=== PATIENT | male | born 1955 | race Caucasian/White ===

== ENCOUNTER → 2023-04-13 07:29 | Outpatient (REF) | payer MEDICARE, SELFPAY ==
[2023-04-13 09:06] LABS: HDL Cholesterol 51 mg/dl; LDL Cholesterol, Calculated 148 mg/dl; Total Cholesterol 211 mg/dl (50-199); Triglyceride 61 mg/dl (10-149); Very Low Density Lipoprotein 12 mg/dl (0-30)
[2023-04-13 09:33] LABS: PSA, Total - Screen 0.55 ng/ml (0.0-4.0)
[2023-04-13 11:10] LABS: Glycohemoglobin (HgbA1c) 5.6 % (4.0-5.6)
[2023-04-15 17:26] LABS: ALT (SGPT) 24 U/L (0-50); AST (SGOT) 22 U/L (17-59); Albumin 4.1 g/dl (3.5-5.0); Alkaline Phosphatase 52 U/L (38-126); Blood Urea Nitrogen 23 mg/dl (9-20); Calcium 9.8 mg/dl (8.4-10.2); Carbon Dioxide 26 mmol/L (22-30); Chloride 101 mmol/L (98-107); Glucose 102 mg/dl (70-99); Potassium 4.4 mmol/L (3.5-5.1); Sodium 136 mmol/L (135-145); Total Bilirubin 1.2 mg/dl (0.2-1.3); Total Protein 7.6 g/dl (6.3-8.2); eGFR > 60.00
== END ==
LOC: REG 07:29
PROVIDERS: ATTENDING PHYSICIAN Physician Assistant Medical
DX: R73.01 Impaired fasting glucose (principal); E78.2 Mixed hyperlipidemia; Z78.9 Other specified health status; Z12.5 Encounter for screening for malignant neoplasm of prostate
CPT/HCPCS: 36415; 80053; 80061; 83036; G0103

== ENCOUNTER → 2023-04-18 07:14 | Outpatient (REF) | payer MEDICARE, SELFPAY ==
[2023-04-20 13:01] LABS: Quantiferon Mitogen minus NIL 4.77 IU/mL; Quantiferon NIL 0.02 IU/mL; Quantiferon TB Gold Plus Negative (Negative)
== END ==
LOC: REG 07:14
PROVIDERS: ATTENDING PHYSICIAN Internal Medicine Rheumatology; FAMILY PHYSICIAN Family Medicine
DX: L40.50 Arthropathic psoriasis, unspecified (principal)
CPT/HCPCS: 36415; 86480

== ENCOUNTER → 2023-04-22 07:22 | Outpatient (REF) | payer MEDICARE, SELFPAY | LOC: RAD 07:22 | PROVIDERS: ATTENDING PHYSICIAN Physician Assistant Medical | DX: Z13.6 Encounter for screening for cardiovascular disorders (principal); I10 Essential (primary) hypertension | CPT/HCPCS: 76770 ==

== ENCOUNTER → 2024-03-13 07:17 | Outpatient (REF) | payer MEDICARE, SELFPAY | LOC: RAD 07:17 | PROVIDERS: ATTENDING PHYSICIAN Internal Medicine Critical Care Medicine; FAMILY PHYSICIAN Physician Assistant Medical | DX: Z87.891 Personal history of nicotine dependence (principal) | CPT/HCPCS: 71271 ==

== ENCOUNTER → 2024-04-11 07:04 | Outpatient (REF) | payer MEDICARE, SELFPAY ==
[2024-04-11 08:59] LABS: Glycohemoglobin (HgbA1c) 5.7 % (4.0-5.6)
[2024-04-11 09:06] LABS: ALT (SGPT) 22 U/L (0-50); AST (SGOT) 20 U/L (17-59); Albumin 4.7 g/dl (3.5-5.0); Alkaline Phosphatase 77 U/L (38-126); Blood Urea Nitrogen 20 mg/dl (9-20); Calcium 9.4 mg/dl (8.4-10.2); Carbon Dioxide 32 mmol/L (22-30); Chloride 98 mmol/L (98-107); Glucose 92 mg/dl (70-99); HDL Cholesterol 47 mg/dl; LDL Cholesterol, Calculated 137 mg/dl; Sodium 141 mmol/L (135-145); Total Bilirubin 1.5 mg/dl (0.2-1.3); Total Cholesterol 213 mg/dl (50-199); Total Protein 7.9 g/dl (6.3-8.2); Triglyceride 147 mg/dl (10-149); Very Low Density Lipoprotein 29 mg/dl (0-30); eGFR > 60.00
== END ==
LOC: REG 07:04
PROVIDERS: ATTENDING PHYSICIAN Physician Assistant Medical
DX: Z12.5 Encounter for screening for malignant neoplasm of prostate (principal); I10 Essential (primary) hypertension; R73.01 Impaired fasting glucose; E78.2 Mixed hyperlipidemia
CPT/HCPCS: 36415; 80053; 80061; 83036; G0103

== ENCOUNTER → 2024-10-10 07:11 | Outpatient (REF) | payer MEDICARE, SELFPAY ==
[2024-10-10 09:39] LABS: ALT (SGPT) 19 U/L (0-50); AST (SGOT) 19 U/L (17-59); Albumin 4.1 g/dl (3.5-5.0); Alkaline Phosphatase 60 U/L (38-126); Blood Urea Nitrogen 18 mg/dl (9-20); Calcium 9.3 mg/dl (8.4-10.2); Carbon Dioxide 31 mmol/L (22-30); Chloride 103 mmol/L (98-107); Glucose 89 mg/dl (70-99); HDL Cholesterol 54 mg/dl; LDL Cholesterol, Calculated 90 mg/dl; Potassium 3.6 mmol/L (3.5-5.1); Sodium 141 mmol/L (135-145); Total Protein 6.9 g/dl (6.3-8.2); Very Low Density Lipoprotein 14 mg/dl (0-30); eGFR > 60.00
[2024-10-10 10:35] LABS: Glycohemoglobin (HgbA1c) 5.7 % (4.0-5.6)
== END ==
LOC: REG 07:11
PROVIDERS: ATTENDING PHYSICIAN Physician Assistant Medical
DX: I10 Essential (primary) hypertension (principal); R73.01 Impaired fasting glucose; E78.2 Mixed hyperlipidemia
CPT/HCPCS: 36415; 80053; 80061; 83036